=== PATIENT | male | born 1980 | race Caucasian/White ===

== ENCOUNTER 2016-08-21 13:37 | Emergency (ER) | payer OTHER ==
[~2016-08-21 13:37] MED LIST: ATARAX PO; CIMETIDINE400 MG PO; DEPAKOTE; FLAGYL PO; NORVIR100 M1; NORVIR100 M1 PO; NORVIR100 MG; PREVISTA PO; PREZISTA75 MG; PREZISTA800 MG; RISPERIDONE; TRAZODONE; TRUVADA 200 MG1 EACH; TRUVADA TABLET1 TA1 PO; VOLTAREN50 MG PO; VOLTAREN75 MG PO; ZOVIRAX; ZYRTEC
[2016-08-21 13:41] LABS: BASOPHIL% 0.6 % (0-2.5); DIFF IND NO; EOSINOPHIL# 0.1 X10e3 (0-0.7); HEMATOCRIT 46.9 % (38.0-50.0); HEMOGLOBIN 15.9 gm/dL (13.0-16.0); LYMPHOCYTE# 2.2 X10e3 (1.0-3.5); LYMPHOCYTE% 37.1 % (17.0-45.0); MEAN CELL VOLUME 95.8 FL (83-96); MEAN CORPUSCULAR HEMOGLOBIN 32.5 PG (28-34); MEAN CORPUSCULAR HGB CONC 33.9 g/dL (30-36); MONOCYTE# 0.3 X10e3 (0-1.0); MONOCYTE% 5.9 % (3.0-12.0); NEUTROPHIL# 3.3 X10e3 (1.5-7.1); NEUTROPHIL% 55.4 % (40-75); PLATELET COUNT 117 X10e3 (140-420); RED CELL DISTRIBUTION WIDTH 14.8 % (11.0-15.5); WHITE BLOOD COUNT 5.9 X10e3 (4.0-10.5)
[2016-08-21 13:59] LABS: URINE SOURCE CLEAN CATCH
[2016-08-21 14:06] LABS: URINE APPEARANCE CLEAR; URINE BILIRUBIN NEG (NEG); URINE BLOOD NEG (NEG); URINE COLOR YELLOW; URINE GLUCOSE NEG (NEG); URINE KETONE NEG (NEG); URINE LEUKOCYTE ESTERASE NEG (NEG); URINE NITRATE NEG (NEG); URINE PH 5.5 (5-8); URINE PROTEIN NEG (NEG); URINE SPECIFIC GRAVITY 1.013 (1.003-1.035); URINE UROBILINOGEN 0.2 MG/DL (NEG)
[2016-08-21 14:09] LABS: ALBUMIN SERUM 4.6 g/dL (3.5-5.0); BILIRUBIN, DIRECT 0.1 mg/dL (0.0-0.2); BILIRUBIN,INDIRECT 0.2 mg/dL (0.0-0.9); BILIRUBIN,TOTAL 0.3 mg/dL (0.2-2.0); BUN/CREATININE RATIO 7.5; CALCIUM SERUM 9.4 mg/dL (8.4-10.2); CREATININE SERUM 1.2 mg/dL (0.6-1.4); GLOM FILT RATE Estimated 78.4 mL/min (>60); POTASSIUM 3.8 mmol/L (3.5-5.1); PROTEIN TOTAL SERUM 7.5 g/dL (6.0-8.3)
[2016-08-21 14:11] LABS: CULTURE INDICATED? NO
[2016-08-21 14:16] LABS: AMPHETAMINE NEG (NEG); BARBITURATES NEG (NEG); BENZODIAZEPINES NEG (NEG); COCAINE NEG (NEG); MARIJUANA NEG (NEG); OPIATES NEG (NEG); TRICYCLIC ANTIDEPRESSANTS NEG (NEG); U METHADONE NEG (NEG)
== END 2016-08-21 14:30 | disposition home or self-care (01) ==
LOC: CED 13:37
PROVIDERS: Student in an Organized Health Care Education/Training Program
DX: R10.9 Unspecified abdominal pain (principal); Z90.49 Acquired absence of other specified parts of digestive tract
CPT/HCPCS: 80048; 80076; 80307; 81003; 82150; 83690; 85025; 99284

== ENCOUNTER 2016-12-27 11:42 | Emergency (ER) | payer OTHER ==
[~2016-12-27] VITALS: Ht 172.7 cm; Wt 63.5 kg
--- NOTE | ~2016-12-27 | CR181 ---
[facility] A Service of [facility] & [facility] RADIOLOGY TEXT RESULTS PATIENT: ZANDER MACDONALD LOCATION: CFTX : 84 UNIT #: [id number] AGE: [address]: Elvia Canada APRN SEX: M ORDER DR: [id number] [facility] [address] [place], [place] [address] [id number] E MR#: [id number] Acc #: [id number] NAME: ZANDER MACDONALD : 1980 SEX: M STUDY DATE/TIME: 12/27/2016 13:00 UNIT: [facility] ROOM: STUDY DESCRIPTION: CR Lumbar Spine 2 or 3 Views Attending Physician: Elvia Canada A.P.R.N. Ordering Physician: Ed Lino Xiong M.D. Primary Care Physician: Obdulia Avery A.P.R.N. MEDICAL IMAGING REPORT This report is preliminary unless electronic signature is present EXAM Lumbar spine. INDICATIONS Low back pain. 1-day duration. COMPARISON 3 views of the lumbar spine without comparison. FINDINGS There is no acute fracture or subluxation. Sacroiliac joints are normal. IMPRESSION No acute findings. Dictated by... Vitaly Burnett M.D. THIS IS AN ELECTRONICALLY VERIFIED REPORT Vitaly Burnett M.D. at 12/28/2016 11:51 AM MARIANO/salbador TD: 12/28/2016 11:49 JOB #: [id number] MEDICAL IMAGING REPORT Page 1 of 1 COPY
== END 2016-12-27 14:16 | disposition home or self-care (01) ==
LOC: CED 11:42 → CFTX 11:42
DX: S39.012A Strain of muscle, fascia and tendon of lower back, initial encounter (principal); J44.9 Chronic obstructive pulmonary disease, unspecified; B20 Human immunodeficiency virus [HIV] disease; F41.8 Other specified anxiety disorders; F17.210 Nicotine dependence, cigarettes, uncomplicated; Z86.19 Personal history of other infectious and parasitic diseases; X58.XXXA Exposure to other specified factors, initial encounter
CPT/HCPCS: 72100; 96372; 99283; J1885